=== PATIENT | female | born 1960 | race Caucasian/White ===

== ENCOUNTER 2021-09-30 20:25 | Emergency (ER) | payer MEDICAID ==
--- NOTE | 2021-09-30 21:18 | EDM.PDOC ---
ED HPI GENERAL MEDICAL PROBLEM - General Chief Complaint: Abdominal Pain Stated Complaint: ABD PAIN/INDIGESTION Time Seen by Provider: 09/30/21 21:17 - History of Present Illness INITIAL COMMENTS - FREE TEXT/NARRATIVE: 61-year-old female presents the emergency room with abdominal pain. This is been going on for about a week she has tried a single dose of omeprazole but this is not helped yet she describes the pain is right underneath her breastbone. This is been bothering her for the last week or so she is not aware of any precipitating factors. She is a decreased appetite no nausea no vomiting no diarrhea no black or tarry stools. Patient has a history of having a heart attack in her upper 30s. She continues to smoke. Epigastric Pain Score (Numeric/FACES): 3 - Related Data Allergies Allergy/AdvReac Type Severity Reaction Status Date / Time No Known Allergies Allergy Verified 09/30/21 21:13 Home Meds: Home Meds Esomeprazole Magnesium 20 mg PO DAILY 09/30/21 [History] ED ROS GENERAL - Review of Systems Review Of Systems: See Below Constitutional: Reports: No Symptoms HEENT: Reports: No Symptoms Respiratory: Reports: No Symptoms Cardiovascular: Reports: No Symptoms GI/Abdominal: Reports: Abdominal Pain, Nausea (Upset stomach). Denies: Black Stool, Bloody Stool, Constipation, Diarrhea, Vomiting : Reports: No Symptoms Musculoskeletal: Reports: No Symptoms Skin: Reports: No Symptoms ED EXAM, GENERAL - Physical Exam Exam: See Below Exam Limited By: No Limitations General Appearance: Alert, No Apparent Distress Head: Atraumatic, Normocephalic Neck: Normal Inspection, Supple, Non-Tender, Full Range of Motion Respiratory/Chest: No Respiratory Distress, Lungs Clear, Normal Breath Sounds Cardiovascular: Regular Rate, Rhythm, No Edema, No Murmur GI/Abdominal: Normal Bowel Sounds, Soft, Other (Minimal mid epigastric discomfort) Back Exam: Normal Inspection. No: CVA Tenderness (L), CVA Tenderness (R) Extremities: Normal Inspection, No Pedal Edema Neurological: Alert, Oriented, Normal Cognition #1 Interpretation EKG Date: 09/30/21 Rhythm: NSR Rate (Beats/Min): 61 [place]: Normal P-Wave: Present QRS: Normal ST-T: Other (ST depression aVL leads I, V2, V3 to a lesser degree V45 and [address] elevation leads III and aVF) QT: Normal EKG Interpretation Comments: Abnormal concerning for ischemia Course - Vital Signs Last Recorded V/S: Last Vital Signs Temp 36.6 C 09/30/21 21:07 Pulse 73 09/30/21 21:07 Resp 20 09/30/21 21:07 BP 143/75 H 09/30/21 22:41 Pulse Ox 100 09/30/21 21:07 - Orders/Labs/Meds Orders: Active Orders 24 hr Category Date Time Status Vaccine to be Administered/Admin Charge [RC] ASDIRECTED Care 09/30/21 21:21 Active Chest 1V Frontal [CR] Stat Exams 09/30/21 23:11 Taken Lactated Ringers [Ringers, Lactated] 1,000 ml Med 09/30/21 22:00 Active IV ASDIRECTED Nitroglycerin [Nitrostat] Med 09/30/21 22:35 Active 0.4 mg SL Q5M PRN Medication Orders Lactated Ringer's (Ringers, Lactated) 1,000 mls @ 125 mls/hr IV ASDIRECTED CHIO Last Admin: 09/30/21 22:16 Dose: 125 mls/hr Documented by: [id number] Nitroglycerin (Nitroglycerin 0.4 Mg Tab.Sl) 0.4 mg SL Q5M PRN PRN Reason: Chest Pain Last Admin: 09/30/21 22:41 Dose: 0.4 mg Documented by: [id number] Labs: Laboratory Tests 09/30/21 09/30/21 09/30/21 Range/Units 22:30 22:30 22:30 WBC 7.66 (3.98-10.04) K/mm3 RBC 4.41 (3.98-5.22) M/mm3 Hgb 13.3 (11.2-15.7) gm/dl Hct 39.7 (34.1-44.9) % MCV 90.0 (79.4-94.8) fl MCH 30.2 (25.6-32.2) pg MCHC 33.5 (32.2-35.5) g/dl RDW Std Deviation 51.5 H (36.4-46.3) fL Plt Count 271 (182-369) K/mm3 MPV 9.3 L (9.4-12.3) fl Neut % (Auto) 61.8 (34.0-71.1) % Lymph % (Auto) 27.2 (19.3-51.7) % [place] % (Auto) 9.5 (4.7-12.5) % Eos % (Auto) 1.2 (0.7-5.8) Baso % (Auto) 0.3 (0.1-1.2) % Neut # (Auto) 4.74 (1.56-6.13) K/mm3 Lymph # (Auto) 2.08 (1.18-3.74) K/mm3 [place] # (Auto) 0.73 H (0.24-0.36) K/mm3 Eos # (Auto) 0.09 (0.04-0.36) K/mm3 Baso # (Auto) 0.02 (0.01-0.08) K/mm3 PT 10.5 (9.7-12.0) SECONDS INR 0.94 APTT 25.6 (21.7-31.4) SECONDS Sodium 140 (136-145) mEq/L Potassium 4.0 (3.5-5.1) mEq/L Chloride 106 (98-107) mEq/L Carbon Dioxide 26 (21-32) mEq/L Anion Gap 12.0 (5-15) BUN 13 (7-18) mg/dL Creatinine 1.0 (0.55-1.02) mg/dL Est Cr Clr Drug Dosing 48.25 mL/min Estimated GFR (MDRD) 56 (>60) mL/min BUN/Creatinine Ratio 13.0 L (14-18) Glucose 109 H (70-99) mg/dL Calcium 8.9 (8.5-10.1) mg/dL Total Bilirubin 0.2 (0.2-1.0) mg/dL AST 27 (15-37) U/L ALT 29 (14-59) U/L Alkaline Phosphatase 68 (46-116) U/L Troponin I 0.611 H* (0.00-0.056) ng/mL Total Protein 8.0 (6.4-8.2) g/dl Albumin 3.7 (3.4-5.0) g/dl Globulin 4.3 gm/dL Albumin/Globulin Ratio 0.9 L (1-2) Lipase 93 (73-393) U/L SARS-CoV-2 RNA (LANG) (NEGATIVE) 09/30/21 Range/Units 23:24 WBC (3.98-10.04) K/mm3 RBC (3.98-5.22) M/mm3 Hgb (11.2-15.7) gm/dl Hct (34.1-44.9) % MCV (79.4-94.8) fl MCH (25.6-32.2) pg MCHC (32.2-35.5) g/dl RDW Std Deviation (36.4-46.3) fL Plt Count (182-369) K/mm3 MPV (9.4-12.3) fl Neut % (Auto) (34.0-71.1) % Lymph % (Auto) (19.3-51.7) % [place] % (Auto) (4.7-12.5) % Eos % (Auto) (0.7-5.8) Baso % (Auto) (0.1-1.2) % Neut # (Auto) (1.56-6.13) K/mm3 Lymph # (Auto) (1.18-3.74) K/mm3 [place] # (Auto) (0.24-0.36) K/mm3 Eos # (Auto) (0.04-0.36) K/mm3 Baso # (Auto) (0.01-0.08) K/mm3 PT (9.7-12.0) SECONDS INR APTT (21.7-31.4) SECONDS Sodium (136-145) mEq/L Potassium (3.5-5.1) mEq/L Chloride (98-107) mEq/L Carbon Dioxide (21-32) mEq/L Anion Gap (5-15) BUN (7-18) mg/dL Creatinine (0.55-1.02) mg/dL Est Cr Clr Drug Dosing mL/min Estimated GFR (MDRD) (>60) mL/min BUN/Creatinine Ratio (14-18) Glucose (70-99) mg/dL Calcium (8.5-10.1) mg/dL Total Bilirubin (0.2-1.0) mg/dL AST (15-37) U/L ALT (14-59) U/L Alkaline Phosphatase (46-116) U/L Troponin I (0.00-0.056) ng/mL Total Protein (6.4-8.2) g/dl Albumin (3.4-5.0) g/dl Globulin gm/dL Albumin/Globulin Ratio (1-2) Lipase (73-393) U/L SARS-CoV-2 RNA (LANG) Negative (NEGATIVE) Meds: Medications Generic Name Dose Route Start Last Admin Trade Name Freq PRN Reason Stop Dose Admin Lactated Ringer's 1,000 mls @ 125 mls/hr 09/30/21 22:00 09/30/21 22:16 Ringers, Lactated IV 125 mls/hr ASDIRECTED CHIO Administration Nitroglycerin 0.4 mg 09/30/21 22:35 09/30/21 22:41 Nitroglycerin 0.4 Mg Tab.Sl SL 0.4 mg Q5M PRN Administration Chest Pain Discontinued Medications Generic Name Dose Route Start Last Admin Trade Name Freq PRN Reason Stop Dose Admin Aspirin 324 mg 09/30/21 22:35 09/30/21 22:42 Aspirin 81 Mg Tab.Chew PO 09/30/21 22:36 324 mg ONETIME ONE Administration Aspirin Confirm 09/30/21 22:48 09/30/21 23:05 Aspirin 81 Mg Tab.Chew Administered 09/30/21 22:49 Not Given Dose 81 mg .ROUTE .STK-MED ONE Al Hydroxide/Mg Hydroxide 30 0 ml 09/30/21 21:46 09/30/21 22:16 ml/ Lidocaine HCl 15 ml PO 09/30/21 21:47 45 ml ONETIME ONE Administration Influenza Virus Vaccine 60 mcg 09/30/21 21:30 09/30/21 23:18 Flu Vacc [id number] 36mos Up/Pf 60 Mcg/0.5 Ml Syringe IM 09/30/21 21:31 60 mcg .ONCE ONE Administration - Re-Assessments/Exams Free Text/Narrative Re-Assessment/Exam: 09/30/21 22:41 We attempted a GI cocktail with no success we will try little sublingual nitro and have her chew an aspirin 09/30/21 22:57 Now the patient saying that she thinks the GI cocktail actually helped her. Thus far she has had no benefit from the nitro. 09/30/21 23:40 Troponin came back significantly elevated at 0.611 little more than 10 times her upper end of normal. Patient does state she is actually feeling better now than she has since his pain started. I recommended hospitalization the patient is not interested in pursuing this option and I informed her we do have to move her to [place] at some point or potentially [place] the patient is not interested in pursuing this she wants to sign out AMA I have informed her in no uncertain terms this could be very dangerous and I am concerned she might come back in in a few hours with CPR in progress but she still wants to go home. Departure - Departure Time of Disposition: 23:42 Disposition: Against Medical Advice 07 Clinical Impression: Variant angina, Elevated troponin - Discharge Information Referrals: PCP,None [Primary Care Provider] - Forms: ED Department Discharge Sepsis Event Note (ED) - Evaluation Sepsis Screening Result: No Definite Risk - Focused Exam Vital Signs: Vital Signs Temp Pulse Resp BP BP Pulse Ox 09/30/21 22:41 143/75 H 09/30/21 21:07 36.6 C 73 20 159/106 H 100 - My Orders Last 24 Hours: My Active Orders 09/30/21 21:21 Vaccine to be Administered/Admin Charge [RC] ASDIRECTED 09/30/21 22:00 Lactated Ringers [Ringers, Lactated] 1,000 ml IV ASDIRECTED 09/30/21 22:35 Nitroglycerin [Nitrostat] 0.4 mg SL Q5M PRN 09/30/21 23:11 Chest 1V Frontal [CR] Stat - Assessment/Plan Last 24 Hours: My Active Orders 09/30/21 21:21 Vaccine to be Administered/Admin Charge [RC] ASDIRECTED 09/30/21 22:00 Lactated Ringers [Ringers, Lactated] 1,000 ml IV ASDIRECTED 09/30/21 22:35 Nitroglycerin [Nitrostat] 0.4 mg SL Q5M PRN 09/30/21 23:11 Chest 1V Frontal [CR] Stat
[2021-09-30] MEDS ORDERED: FLU Vacc QS2021-22 36MOS UP/PF 60 MCG/0.5 ML Syringe IM ONE (21:30)
[2021-09-30] MEDS ORDERED: Alum Hydrox/Mag Hydrox/Simeth 30 ML, Lidocaine 2% 15 ML PO ONE ×2 (21:46)
[2021-09-30] MEDS ORDERED: Lactated Ringers 1,000 ML IV SCH (22:00)
[2021-09-30] MEDS ORDERED: Nitroglycerin 0.4 MG Tab.SL SL PRN (22:35)
[2021-09-30] MEDS ORDERED: Aspirin 81 MG Tab.Chew PO ONE (22:35)
[2021-09-30] MEDS ORDERED: Aspirin 81 MG Tab.Chew ONE (22:48)
--- NOTE | 2021-10-01 07:06 | CR ---
Chest: Portable view of the chest was obtained. Comparison: No prior chest imaging is available. Heart size and mediastinum are within normal limits. Lungs are clear with no acute parenchymal change. No acute osseous abnormality is appreciated. Impression: 1. Nothing acute is seen on portable chest x-ray. Diagnostic code #1
== END 2021-09-30 23:39 | disposition left against medical advice (07) ==
LOC: JD.ED 20:25
DX: I20.1 Angina pectoris with documented spasm (principal); R77.8 Other specified abnormalities of plasma proteins; Z20.822 Contact with and (suspected) exposure to COVID-19; Z23 Encounter for immunization
CPT/HCPCS: 36415; 71045; 80053; 83690; 84484; 85025; 85610; 85730; 87635; 90471; 90686; 93005; 99284; A9270; J7120; G0008; U0002

== ENCOUNTER 2021-12-24 11:07 | Emergency (ER) | payer MEDICAID | END 2021-12-24 14:12 | disposition home or self-care (01) | LOC: JD.ED 11:07 | DX: J90 Pleural effusion, not elsewhere classified (principal); I25.2 Old myocardial infarction; Z88.8 Allergy status to other drugs, medicaments and biological substances; Z87.891 Personal history of nicotine dependence | CPT/HCPCS: 36415; 71046; 71046-26; 80053; 83880; 85025; 85610; 93005; 99285-25 ==